=== PATIENT | male | born 1965 | race Caucasian/White ===

== ENCOUNTER 2018-06-16 07:31 | Day surgery (SDC) | payer BC ==
[~2018-06-16 07:31] MED LIST: Lactated Ringers 1,000 ML IV SCH
[2018-06-16] MEDS ORDERED: Propofol 200 MG/20 ML SDV ONE (09:34)
[2018-06-16] MEDS ORDERED: fentaNYL 100 MCG/2 ML SDV ONE (09:34)
--- NOTE | 2018-06-16 12:53 | OR ---
PREOPERATIVE DIAGNOSIS: Screening colonoscopy. POSTOPERATIVE DIAGNOSIS: Normal colonoscopic exam. PROCEDURE PROPOSED: Total flexible colonoscopy. PROCEDURE DONE: Total flexible colonoscopy. INDICATION: This is a 53-year-old gentleman who comes in for a screening colonoscopy. He denies any symptomatology and he has a negative family history for colon cancer. TECHNIQUE: The patient brought to the endoscopy suite, placed in left lateral decubitus position. He was sedated per [employer] with propofol. The flexible video colonoscope was then passed transanally and under visualization advanced to the cecum. Examination revealed a normal ascending, transverse, descending, sigmoid, and rectal colon. There was no evidence of any polyps, diverticulosis, colitis, or any other abnormalities. The scope was then withdrawn. The patient tolerated procedure well. FINAL IMPRESSION: Essentially normal colonoscopic exam. PLAN: The patient is reassured. I felt he could wait 10 years before he needs a followup colonoscopy. SCM: 06/16/2018 10:35:42 MODL: 06/16/2018 12:45:48 /[id number]
== END 2018-06-16 12:00 | disposition home or self-care (01) ==
LOC: VM.SDS 07:31
PROVIDERS: ATTEND Surgery
DX: Z12.11 Encounter for screening for malignant neoplasm of colon (principal); R73.01 Impaired fasting glucose; M10.9 Gout, unspecified; M19.031 Primary osteoarthritis, right wrist; E66.01 Morbid (severe) obesity due to excess calories; Z68.41 Body mass index [BMI] 40.0-44.9, adult; Z88.0 Allergy status to penicillin; Z79.1 Long term (current) use of non-steroidal anti-inflammatories (NSAID); Z79.52 Long term (current) use of systemic steroids; Z79.899 Other long term (current) drug therapy
CPT/HCPCS: 45378; J2704; J3010; J7120

== ENCOUNTER 2023-01-31 15:26 | Emergency (ER) | payer OTHER ==
[2023-01-31] MEDS: Sodium Chloride 0.9% 1,000 ML IV ONE (16:12)
[2023-01-31] MEDS: Iopamidol 612 MG/ML 100 ML Bottle IVPUSH ONE (16:27)
[2023-01-31] MEDS: cefTRIAXone 1 GM Vial IVPUSH ONE (18:09)
== END 2023-01-31 18:49 | disposition short-term general hospital (02) ==
LOC: VM.ED 15:26
DX: K74.60 Unspecified cirrhosis of liver (principal); K85.90 Acute pancreatitis without necrosis or infection, unspecified; E66.9 Obesity, unspecified; Z68.37 Body mass index [BMI] 37.0-37.9, adult; Z88.0 Allergy status to penicillin
CPT/HCPCS: 74177; 83690; 96361; 96374; 99284-25; J0696; J7030; Q9967